=== PATIENT | male | born 1995 | race African-American/Black ===

== ENCOUNTER 2018-11-08 17:44 | Day surgery (SDC) | payer OTHER, SELFPAY ==
[~2018-11-08] VITALS: Ht 180.3 cm; Wt 109.1 kg
--- NOTE | 2018-11-08 18:20 | REP ---
Clinical: Trauma. Technique: AP, lateral, bilateral oblique views of the right hand. Findings: Comminuted boxer's fracture of the fifth metacarpal bone and comminuted nondisplaced fracture at the base of the fourth metacarpal bone. Overlying soft tissue swelling. Impression: Fractures of the fourth and fifth metacarpal bones. Electronically Signed by Torito Chaney MD 11/08/2018 06:10 P
[2018-11-08] MEDS ORDERED: IBUP200C25 PO (20:22)
[2018-11-08] MEDS ORDERED: NS 1,000 ML IV ONE (20:30)
[2018-11-08] MEDS ORDERED: ceFAZolin SOD 2 GM in IV 1 EA IV ONE (21:15)
[2018-11-08] MEDS ORDERED: propofoL 200 MG/20 ML VIAL As Ordered ONE (21:22)
[2018-11-08] MEDS ORDERED: ROCURONIUM BROMIDE 50 MG/5 ML VIAL As Ordered ONE (21:22)
[2018-11-08] MEDS ORDERED: ONDANSETRON 4MG/2ML VIAL (J2405) As Ordered ONE (21:22)
[2018-11-08] MEDS ORDERED: LIDOCAINE 2% INJ 100 MG/5 ML SDV (FOR ANES.) As Ordered ONE (21:22)
[2018-11-08] MEDS ORDERED: dexameTHASONE 4 MG/ML 1ML VIAL (J1100) As Ordered ONE (21:22)
[2018-11-08] MEDS ORDERED: fentaNYL 250 MCG/5 ML INJECTION (J3010) As Ordered ONE (21:27)
[2018-11-08] MEDS ORDERED: MIDAZOLAM INJ 2 MG/2 ML VIAL (J2250) As Ordered ONE (21:27)
[2018-11-08] MEDS ORDERED: BUPIVACAINE HCL 0.5% 30 ML VIAL As Ordered ONE (22:23)
[2018-11-08] MEDS ORDERED: ceFAZolin 1GM INJ (J0690 PER 500MG) As Ordered ONE (22:27)
[2018-11-08] MEDS ORDERED: KETOROLAC 60 MG/2 ML VIAL (J1885) As Ordered ONE (22:58)
[2018-11-08] MEDS ORDERED: fentaNYL 100 MCG/2 ML INJECTION (J3010) IV PRN (23:30)
[2018-11-08] MEDS ORDERED: ONDANSETRON 4MG/2ML VIAL (J2405) IV PRN (23:30)
[2018-11-08] MEDS ORDERED: NORCO, ANEXSIA 5/325MG TABLET (HYDROcodone/ACETAMINOPHEN) PO PRN (23:30)
[2018-11-08] MEDS ORDERED: LR 1,000 ML IV SCH (23:30)
[2018-11-09] VITALS (9 sets, daily range): BP systolic 117–140; BP diastolic 63–91
[2018-11-09] MEDS ORDERED: ONDANSETRON 4MG/2ML VIAL (J2405) IV PRN (00:45)
[2018-11-09] MEDS ORDERED: traMADol 50 MG TAB PO PRN ×2 (00:45)
[2018-11-09] MEDS: ACETAMINOPHEN TAB 650MG DOSE (2X325MG) PO PRN ×2 (06:21→15:51)
[2018-11-09] MEDS ORDERED: TRAM50TA2 PO (06:28)
[2018-11-09] MEDS ORDERED: IBUP-1114 PO (06:28)
--- NOTE | 2018-11-09 08:00 | REP ---
Clinical: Fixation. Fracture. Technique: Real time intraoperative imaging using fluoroscopic technique. Findings: Fluoroscopic images demonstrate the patient to be status post open reduction and fixation of the fifth metacarpal fracture. Fracture at the base of the fourth metacarpal bone noted. Total fluoroscopic time 40 seconds. Impression: Satisfactory open reduction and fixation for fifth metacarpal fracture. Nondisplaced fourth metacarpal fracture noted. Electronically Signed by Torito Chaney MD 11/09/2018 07:51 A
--- NOTE | 2018-11-09 08:03 | REP ---
Clinical: Status post open reduction and fixation. Technique: AP, lateral, bilateral oblique views of the right hand. Findings: The patient is noted to be status post satisfactory open reduction and fixation for fifth metacarpal fracture. Fracture at the base of the fourth metacarpal bone noted. Overlying splint somewhat limits evaluation of fine bony detail. Impression: Status post open reduction and fixation fifth metacarpal fracture. Nondisplaced fourth metacarpal fracture noted. Electronically Signed by Torito Chaney MD 11/09/2018 07:54 A
[2018-11-09] MEDS: ceFAZolin SOD 2 GM in IV 1 EA IV SCH ×2 (10:09→15:51)
--- NOTE | 2018-11-09 10:35 | RO ---
DATE OF PROCEDURE: 11/08/2018 PREOPERATIVE DIAGNOSIS: Right-hand open small finger metacarpal fracture and nondisplaced ring finger metacarpal base fracture. POSTOPERATIVE DIAGNOSIS: Right-hand open small finger metacarpal fracture and nondisplaced ring finger metacarpal base fracture. PROCEDURE PERFORMED: Right hand irrigation and debridement, open reduction internal fixation of the small finger metacarpal. SURGEON: Dr. Matt Iverson BOAT HOIST OPERATOR: None. ANESTHESIA: General endotracheal anesthesia and local. TOTAL TOURNIQUET TIME: 46 minutes at 250 mmHg right brachium. ANTIBIOTICS: 2 grams Ancef given within 1 hour of incision. IMPLANTS USED: Synthes 2.0 LC-DCP plate 6-hole. COMPLICATIONS: None. MATERIALS SENT TO LABORATORY: None. 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 He also had a nondisplaced ring finger metacarpal fracture at the base. Given the open nature of his fracture and fact that he is moving home and it is unclear if he will be able to get timely treatment for his orthopedic injury, I recommended irrigation and debridement and open reduction internal fixation of the small finger metacarpal with possible fixation of the ring finger metacarpal if needed. The risks, benefits, indications, and alternatives of both operative and nonoperative management were discussed with the patient. I counseled the patient that his surgery will be done here, but he will require followup when he gets home. The patient expressed understanding of this and provided the informed consent for right hand irrigation and debridement and open reduction internal fixation. INTRAOPERATIVE FINDINGS: After fixation of the small finger metacarpal, the right finger metacarpal fracture was nondisplaced and stable and did not require additional fixation. DESCRIPTION OF OPERATION: The patient was positively identified in the preop holding where the surgical site was marked. He was then brought to the operating room and was placed under general endotracheal anesthesia. He was positioned supine on the hand table with all bony prominences appropriately padded. Sequential compression devices (SCDs) were placed on the lower extremities for deep vein thrombosis (DVT) prophylaxis. He was then prepped and draped in the usual sterile fashion. A final time-out was performed. I used the punctate open wound on the dorsum of his right hand and extended proximally and distally. I dissected the skin and subcutaneous tissue. I exploited the open fracture wound which was in the interval between the extensor digitorum communis (EDC) tendon and extensor digiti quinti (EDQ). I then thoroughly irrigated the open fracture wound with normal saline. After completion of the irrigation and debridement, I then used a pointed reduction tenaculum to obtain an anatomic reduction. There was some comminution. Therefore, I elected to perform a bridge plate construct. I placed a 6-hole plate dorsally over the metacarpal shaft. I placed two cortex screws proximally and two distally. I then took the hand through a range of motion and normal cascade with anatomic reduction of the fracture. I used intraoperative mini C-arm fluoroscopy to confirm adequate placement of all screws and anatomic reduction of the fracture. I also visualized the ring finger metacarpal base fracture which was nondisplaced and did not require further surgical treatment. At this point, I then irrigated the wound again with normal saline. The skin was closed with a running #3-0 nylon suture in horizontal mattress fashion. I then injected 10 mL of 0.5% Marcaine into the incision site, with 5 mL in the incision site and 5 mL as an ulnar nerve block at the wrist for additional pain control. Sterile dressings were applied and this ended the procedure. The patient was placed into a well-padded volar splint. I was present and scrubbed in for all portions of the case. POSTOPERATIVE PLAN: The patient will remain in the hospital for two additional doses of IV antibiotics given his open fracture. He will be discharged home tomorrow and will follow up with a local orthopedic surgeon in [place] for further followup care for his hand fracture, but may followup with us on an as needed basis if he remains in the area. [place]
== END 2018-11-09 17:20 | disposition home or self-care (01) ==
LOC: M ED 17:44 → M SDC 20:29 → M MSPAV 11-09 00:01 → M SDC 11-09 17:20
PROVIDERS: ATTEND Orthopaedic Surgery
DX: S62.326B Displaced fracture of shaft of fifth metacarpal bone, right hand, initial encounter for open fracture (principal); S62.304A Unspecified fracture of fourth metacarpal bone, right hand, initial encounter for closed fracture; W22.09XA Striking against other stationary object, initial encounter; Y92.9 Unspecified place or not applicable; Y93.9 Activity, unspecified; Y99.9 Unspecified external cause status
CPT/HCPCS: 11010; 26615; 73130; 99284; C1713; J0690; J1100; J1885; J2250; J2405; J3010